=== PATIENT | female | born 1970 | race Caucasian/White ===

== ENCOUNTER 2017-09-21 13:28 | Emergency (ER) | payer SELFPAY ==
--- NOTE | 2017-09-21 15:34 | RAD ---
RADIOGRAPH CHEST 2 VIEWS: 09/21/17 HISTORY: 46-year-old female with cough. FINDINGS: There is no air space density, pulmonary edema, pleural effusion, pneumothorax, or cardiomegaly. IMPRESSION: No acute cardiopulmonary findings. ian [] POS: [facility]
== END 2017-09-21 14:46 | disposition home or self-care (01) ==
LOC: SCSER 13:28
DX: J32.9 Chronic sinusitis, unspecified (principal); I10 Essential (primary) hypertension; Z79.899 Other long term (current) drug therapy
CPT/HCPCS: 71046; J7620

== ENCOUNTER 2019-02-22 13:42 | Emergency (ER) | payer SELFPAY ==
[2019-02-22] MEDS ORDERED: Ibuprofen 800 MG TAB ONE (14:31)
[2019-02-22] MEDS ORDERED: Morphine 4 MG/ML VIAL ONE (14:31)
[2019-02-22] MEDS ORDERED: Acetaminophen 325 MG TAB ONE (14:31)
--- NOTE | 2019-02-22 14:31 | RAD ---
Exam: 2 views left elbow HISTORY: Fall. Pain. FINDINGS: There is a joint effusion. No fractures or malalignment IMPRESSION: Joint effusion which is a secondary sign for fracture. Correlate clinically. Immobilizati on and follow-up imaging in 7-10 days. Consider orthopedic consultation.
--- NOTE | 2019-02-22 15:32 | RAD ---
Exam:Left forearm 2 views HISTORY: Pain. Injury. Fall. COMPARISON: None FINDINGS: The AP projection suggests a possible impacted fracture involving the proximal radius, just distal to the radial head. Elbow radiograph series does demonstrate joint effusion. However, fracture was difficult to appreciate on the elbow images provided. The remainder of the radius and ul na are unremarkable. IMPRESSION: Possible proximal radius fracture. Consider CT if clinically warranted.
--- NOTE | 2019-02-22 15:40 | RAD ---
Exam:2 views left humerus HISTORY: Pain. Injury. COMPARISON: None FINDINGS: No evidence of fracture or cortical irregularity with regards to the left humerus. IMPRESSION: No fracture.
[2019-02-22] MEDS ORDERED: HYDROcodone/Acetaminophen 5/325 mg Tablet ONE (16:24)
== END 2019-02-22 16:30 | disposition home or self-care (01) ==
LOC: SCSER 13:42
DX: S52.122A Displaced fracture of head of left radius, initial encounter for closed fracture (principal); I10 Essential (primary) hypertension; Z79.899 Other long term (current) drug therapy; W19.XXXA Unspecified fall, initial encounter
CPT/HCPCS: 29105; 96372; J2270

== ENCOUNTER 2024-05-08 12:40 | Emergency (ER) | payer OTHER ==
[2024-05-08] MEDS ORDERED: Ketorolac Tromethamine 30 MG (1 mL) VIAL ONE (13:04)
[2024-05-08 13:19] LABS: #Basophils Less than 0.03 10x3/uL (0.0-0.2); %Basophils 0.2 % (0.0-1.0); %Eosinophils 3.6 % (0.0-10.0); %Lymphocytes 36.2 % (21.0-51.0); %Monocytes 8.7 % (0.0-10.0); %Neutrophils 51.3 % (42.0-75.0); Hematocrit 41.8 % (36.0-47.0); Hemoglobin 13.2 g/dL (12.0-16.0); Mean Corpuscular HGB CONC 31.6 g/dL (32.0-36.0); Mean Corpuscular Hemoglobin 28.9 pg (27.0-31.0); Mean Corpuscular Volume 91.7 fL (78.0-98.0); Mean Platelet Volume 9.9 fL (7.4-10.4); Platelet Count 229 10x3/uL (130-400); RBC Distribution Width 13.2 % (11.5-14.5); Red Blood Cell (RBC) Count 4.56 mill/uL (4.20-5.40)
[2024-05-08 13:42] LABS: CRP,High Sensitivity (Inhouse) 0.29 mg/dL (< or = 0.5)
[2024-05-08 13:43] LABS: ALT (SGPT) 14 U/L (8-55); AST (SGOT) 18 U/L (5-34); Albumin 3.5 g/dL (3.5-5.0); Alkaline Phosphatase 91 U/L (40-110); Anion Gap 10 mmol/L (10-20); BUN (Urea Nitrogen) 8 mg/dL (9.8-20.1); Bilirubin, Total 0.5 mg/dL (0.2-1.2); Calc. Creatinine Clearance 0 mL/min (70-130); Calcium 8.8 mg/dL (7.8-10.44); Carbon Dioxide 28 mmol/L (22-29); Chloride 106 mmol/L (98-107); Estimated GFR 93; Globulin 3.4 g/dL (2.4-3.5); Glucose 88 mg/dL (70-105); Potassium 3.7 mmol/L (3.5-5.1); Protein, Total 6.9 g/dL (6.0-8.3); Sodium 140 mmol/L (136-145); Uric Acid 5.7 mg/dL (2.6-6.0)
== END 2024-05-08 14:14 | disposition home or self-care (01) ==
LOC: ERS 12:40
DX: M65.4 Radial styloid tenosynovitis [de Quervain] (principal); I10 Essential (primary) hypertension
CPT/HCPCS: 36415; 80053; 84550; 85025; 86141; 96372; 99283; J1885